=== PATIENT | male | born 1935 | race Caucasian/White ===

== ENCOUNTER 2020-02-05 15:11 | Emergency (ER) | payer MEDICARE, OTHER ==
--- NOTE | 2020-02-05 16:02 | EDM.PDOC ---
ED HPI GENERAL MEDICAL PROBLEM - General Chief Complaint: Lower Extremity Injury/Pain Stated Complaint: [id number] INFECTION IN BIG TOE Time Seen by Provider: 02/05/20 15:40 Source of Information: Reports: Patient, RN, RN Notes Reviewed History Limitations: Reports: No Limitations - History of Present Illness INITIAL COMMENTS - FREE TEXT/NARRATIVE: Patient presents to the ED via personal vehicle with complaints of pain, edema, and erythema in his right great toe. Per patient report, this pain started last (01/28/20), after he clipped his toes and removed a hangnail to the affected side. The symptoms have progressively worsened since this time. He has been utilizing Epson salt soaks and [id number] antibacterial ointment, which has provided little to no alleviation of symptoms. He denies fever, shaking chills, loss of motor function to the area, or loss of sensory function to the area. He has been taking Ibuprofen 400mg for alleviation of pain. - Related Data Allergies Allergy/AdvReac Type Severity Reaction Status Date / Time No Known Allergies Allergy Verified 02/05/20 15:30 Home Meds: Home Meds Acetaminophen 650 mg PO TID PRN 02/05/20 [History] Alogliptin Benzoate [Alogliptin] 12.5 mg PO DAILY 02/05/20 [History] Diclofenac Sodium [Voltaren] 75 mg PO BIDMEALS 02/05/20 [History] Metoprolol Tartrate 25 mg PO BID 02/05/20 [History] Omeprazole 20 mg PO DAILY 02/05/20 [History] Ramipril 10 mg PO DAILY 02/05/20 [History] Rosuvastatin Calcium 20 mg PO DAILY 02/05/20 [History] amLODIPine Besylate [Amlodipine Besylate] 10 mg PO DAILY 02/05/20 [History] glipiZIDE [Glipizide ER] 10 mg PO BID 02/05/20 [History] metFORMIN HCl [Metformin HCl] 1,000 mg PO BID 02/05/20 [History] Past Medical History HEENT History: Reports: Hard of Hearing, Impaired Vision Cardiovascular History: Reports: High Cholesterol, Hypertension Respiratory History: Reports: None Gastrointestinal History: Reports: None Genitourinary History: Reports: None Musculoskeletal History: Reports: Arthritis Neurological History: Reports: None Psychiatric History: Reports: None Endocrine/Metabolic History: Reports: Diabetes, Type I Hematologic History: Reports: None Immunologic History: Reports: None Oncologic (Cancer) History: Reports: None Dermatologic History: Reports: None - Infectious Disease History Infectious Disease History: Reports: MRSA - Past Surgical History Head Surgeries/Procedures: Reports: None Social & Family History - Family History Family Medical History: Noncontributory - Tobacco Use Tobacco Use Status *Q: Never Tobacco User - Caffeine Use Caffeine Use: Reports: None - Recreational Drug Use Recreational Drug Use: No Review of Systems - Review of Systems Review Of Systems: Comprehensive ROS is negative, except as noted in HPI. ED EXAM, GENERAL - Physical Exam Exam: See Below Exam Limited By: No Limitations General Appearance: Alert, WD/WN, No Apparent Distress Peripheral Pulses: 2+: Dorsalis Pedis (R) Extremities: Normal Range of Motion, Normal Capillary Refill, Increased Warmth (To right great toe), Redness (To right great toe) Neurological: Alert, Oriented, CN II-XII Intact, No Motor/Sensory Deficits Skin Exam: Dry, Intact, Erythema (To right great toe), Increased Warmth (To right great toe) Course - Vital Signs Last Recorded V/S: Last Vital Signs Temp 96.6 F L 02/05/20 15:30 Pulse 60 02/05/20 15:30 Resp 16 02/05/20 15:30 BP 163/95 H 02/05/20 15:30 Pulse Ox 100 02/05/20 15:30 - Orders/Labs/Meds Labs: Laboratory Tests 02/05/20 02/05/20 Range/Units 16:36 16:36 WBC 9.9 (5.0-10.0) 10^3/uL RBC 4.17 L (4.6-6.2) 10^6/uL Hgb 12.4 L (14.0-18.0) g/dL Hct 37.0 L (40.0-54.0) % MCV 88.7 (80-100) fL MCH 29.7 (27.0-34.0) pg MCHC 33.5 (33.0-35.0) g/dL Plt Count 293 (150-450) 10^3/uL Neut % (Auto) 58.8 (42.2-75.2) % Lymph % (Auto) 30.5 (20.5-50.1) % [place] % (Auto) 7.4 (2-8) % Eos % (Auto) 3.0 (1.0-3.0) % Baso % (Auto) 0.3 (0.0-1.0) % Sodium 135 L (136-145) mmol/L Potassium 4.6 (3.5-5.1) mmol/L Chloride 101 (98-107) mmol/L Carbon Dioxide 24 (21-32) mmol/L Anion Gap 14.6 H (7-13) mEq/L BUN 34 H (7-18) mg/dL Creatinine 1.50 H (0.70-1.30) mg/dL Est Cr Clr Drug Dosing 33.08 mL/min Estimated GFR (MDRD) 45 BUN/Creatinine Ratio 22.7 (No establ ref range) Glucose 223 H (74-99) mg/dL Calcium 8.5 (8.5-10.1) mg/dL Total Bilirubin 0.2 (0.2-1.0) mg/dL AST 19 (15-37) U/L ALT 39 (16-63) U/L Alkaline Phosphatase 55 (46-116) U/L Total Protein 7.1 (6.4-8.2) g/dL Albumin 3.3 L (3.4-5.0) g/dL Globulin 3.8 Albumin/Globulin Ratio 0.87 Departure - Departure Time of Disposition: 17:21 Disposition: Home, Self-Care 01 Condition: Good Clinical Impression: Paronychia due to ingrown nail - Discharge Information *PRESCRIPTION DRUG MONITORING PROGRAM REVIEWED*: Not Applicable *COPY OF PRESCRIPTION DRUG MONITORING REPORT IN PATIENT DARLINE: Not Applicable Forms: ED Department Discharge Additional Instructions: Rx: Clindamycin Take all of your antibiotics until gone. Consider a consult to podiatry for ongoing diabetic foot care. Continue Epson salt water soaks. Avoid ibuprofen for pain as your kidney function (creatinine) is slightly elevated at 1.5 Sepsis Event Note (ED) - Evaluation Sepsis Screening Result: No Definite Risk - Focused Exam Vital Signs: Vital Signs Temp Pulse Resp BP Pulse Ox 02/05/20 15:30 96.6 F L 60 16 163/95 H 100
--- NOTE | 2020-02-05 16:17 | CR ---
PROCEDURE INFORMATION: Exam: XR Right Foot Complete Exam date and time: 02/05/2020 3:57 PM Age: 84 years old Clinical indication: Other: Infection to the right great toe; Additional info: Infection to the great toe; Rule out osteomylitis TECHNIQUE: Imaging protocol: XR Right foot. Views: 3 or more views. COMPARISON: No relevant prior studies available. FINDINGS: Bones/joints: Soft tissue swelling of the great toe noted. No definite evidence of osteomyelitis as imaged, however further evaluation is recommended with MRI and/or nuclear medicine study, as as clinically warranted. There is no evidence of acute fracture. There is no evidence of joint malalignment or dislocation. Degenerative changes of the 1st metatarsophalangeal joint. Soft tissues: See "Bones/joints" finding. IMPRESSION: 1. Soft tissue swelling of the great toe noted. 2. No definite evidence of osteomyelitis as imaged, however further evaluation is recommended with MRI and/or nuclear medicine study, as as clinically warranted. 3. No evidence of acute fracture. 4. No evidence of acute dislocation.
[2020-02-05 17:06] LABS: ANION GAP 14.6 mEq/L (7-13)
== END 2020-02-05 17:25 | disposition home or self-care (01) ==
LOC: DL.ED 15:11
DX: L60.0 Ingrowing nail (principal); L03.031 Cellulitis of right toe; E78.00 Pure hypercholesterolemia, unspecified; I10 Essential (primary) hypertension; E10.9 Type 1 diabetes mellitus without complications; Z79.84 Long term (current) use of oral hypoglycemic drugs; Z79.899 Other long term (current) drug therapy
CPT/HCPCS: 36415; 73630-RT; 80053; 85025; 99283